=== PATIENT | female | born 2000 | race Caucasian/White ===

== ENCOUNTER 2019-08-05 19:44 | Emergency (ER) | payer MEDICAID ==
[~2019-08-05] VITALS: Ht 160 cm; Wt 61.3 kg
[2019-08-05 19:55] VITALS: BP 126/83
[2019-08-05] MEDS ORDERED: LIDOcaine Viscous 15ml cup MM PRN (21:30)
[2019-08-05] MEDS ORDERED: acetaminophen 325mg tablet PO ONE (21:30)
[2019-08-05] MEDS ORDERED: PENI500T2 PO (21:51)
== END 2019-08-05 22:18 | disposition home or self-care (01) ==
LOC: ER 22:15
DX: J02.0 Streptococcal pharyngitis (principal); B95.5 Unspecified streptococcus as the cause of diseases classified elsewhere; Z79.899 Other long term (current) drug therapy
CPT/HCPCS: 87081; 87880; 99283

== ENCOUNTER 2020-05-15 20:53 | Emergency (ER) | payer SELFPAY ==
[~2020-05-15] VITALS: Ht 160 cm; Wt 67.2 kg
[2020-05-15 20:56] VITALS: BP 132/79
--- NOTE | 2020-05-15 22:00 | NUR ---
PT REPORTS BEING TREATED RECENTLY FOR A UTI, AND NOW FEELING "UNCOMFORTABLE" IN GENITAL AREA.
[2020-05-15] MEDS ORDERED: CefTRIAXone 250MG IM Kit w/LIDOcaine IM ONE (22:30)
[2020-05-15] MEDS ORDERED: fluconazole 150mg tablet PO ONE (22:30)
[2020-05-15] MEDS ORDERED: FLUC150T66 PO (22:35)
== END 2020-05-15 22:59 | disposition home or self-care (01) ==
LOC: ER 20:55
DX: A54.9 Gonococcal infection, unspecified (principal); R30.0 Dysuria; Z79.899 Other long term (current) drug therapy
CPT/HCPCS: 96372; 99284; J0696

== ENCOUNTER 2022-03-18 05:56 | Emergency (ER) | payer MEDICAID ==
[~2022-03-18] VITALS: Ht 160 cm; Wt 63.2 kg
[2022-03-18 06:21] VITALS: BP 120/86
[2022-03-18] MEDS ORDERED: SULF1TAB49 PO (07:59)
[2022-03-18] MEDS ORDERED: sulfamethoxazole/trimethoprim DS (800/160mg) tablet PO ONE (08:00)
--- NOTE | 2022-03-18 08:05 | NUR ---
Went to medicate pt and pt not in room.
--- NOTE | 2022-03-18 08:18 | NUR ---
Pt not back in room and not in bathrooms. Contact number given by pt called and no answer with final message stating the number you have called has not set up voice mail box. Pt left without 1st dose of abx given or DC paperwork with info on ABX that was electronically sent to [facility] pharmacy in [place]. Dr. Martinez was informed of pt leaving without tx or paperwork.
== END 2022-03-18 08:27 | disposition home or self-care (01) ==
LOC: ER 05:57
DX: L02.811 Cutaneous abscess of head [any part, except face] (principal); Z79.899 Other long term (current) drug therapy
CPT/HCPCS: 99283